=== PATIENT | male | born 1935 | race Caucasian/White ===

== ENCOUNTER 2020-09-27 18:46 | Inpatient (IN) | payer OTHER ==
[2020-09-27 19:06] VITALS: BMI 16.9
[2020-09-27] MEDS ORDERED: ONDANSETRON 4 MG/2 ML VIAL IV PRN (19:21)
[2020-09-27] MEDS ORDERED: MORPHINE 2 MG/ML SYR IV PRN (19:21)
[2020-09-27] MEDS ORDERED: CEFTRIAXONE 1 GM/NS 50 ML 1 GM/50 ML BAG IV SCH (19:45)
[2020-09-27] MEDS: NA CHLORIDE 0.9% 1,000 ML IV SCH (19:55)
[2020-09-27 20:00] LABS: Albumin 2.7 g/dL (3.4-5.0); Bilirubin Total 0.5 mg/dL (0.2-1.0); Potassium 4.3 mmol/L (3.5-5.1); Protein, Total 6.1 g/dL (6.4-8.2)
--- NOTE | 2020-09-27 22:20 | P.HP ---
Certification for Inpatient Patient admitted to: Inpatient With expected LOS: >2 Midnights Patient will require the following post-hospital care: None Practitioner: I am a practitioner with admitting privileges, knowledge of patient current condition, hospital course, and medical plan of care. Services: Services provided to patient in accordance with Admission requirements found in Title 42 Section 412.3 of the Code of Federal Regulations <Jeremy Tariq - Last Filed: 09/27/20 22:16> Patient History Date of Service: 09/27/20 Primary Care Provider: none Reason for admission: Small-bowel obstruction History of Present Illness: 85-year-old male with history of coronary artery disease, hyperten mehdi, hyperlipidemia, COPD was evaluated at stand-alone emergency department for abdominal pain. Patient reports that he had been experiencing abdominal pain over the course of the last 1 day. Patient reports last bowel movement was yesterday and normal, has not passed gas at all today, no bowel movement 1 episode of vomiting. Patient was evaluated after free standing ER labs significant for white blood cell count 14.5 hemoglobin 16.5 record 49.2 sodium 144 potassium 5.7, potassium was recheck at the stat CMP upon arrival and is 4.3. CT demonstrates high-grade distal small-bowel obstruction with trace ascites no large, loculated or drainable collection. 5 cm area of masslike consolidation versus scarring within the lateral aspect of the left lower lobe, patient aware of this has had some bloody sputum, likely has lung cancer, is following pulmonology for this. Upon arrival to hospital room patient is awake, alert, oriented x3, not having any stomach pain at this time, abdomen non distended soft, nontender. Patient feeling well at this time. - Past Medical/Surgical History Has patient received pneumonia vaccine in the past: Yes Diabetic: No -: copd -: chf -: htn -: high cholesterol -: carataract -: CAD -: cataract sx -: heart stent Psychosocial/ Personal History: Patient lives at home with his son is retired - Family History Family History: Reviewed- Non-Contributory - Social History Smoking Status: Never smoker Alcohol use: Yes Place of Residence: Home <Jeremy Tariq - Last Filed: 09/27/20 22:16> Date of Service: 10/06/20 <Yahir Cunningham - Last Filed: 10/06/20 20:39> Allergies No Known Allergies Allergy (Verified 09/27/20 19:06) Review of Systems 10-point ROS is otherwise unremarkable Gastrointestinal: Nausea, Vomiting, Abdominal Pain, No Distention <Jeremy Tariq - Last Filed: 09/27/20 22:16> Physical Examination - Vital Signs Temperature: 97.6 F Blood Pressure: 143/73 Pulse: 59 Respirations: 18 Pulse Ox (%): 95 - Physical Exam General: Alert, In no apparent distress HEENT: Atraumatic, PERRLA, Mucous membr. moist/pink Neck: Supple, 2+ carotid pulse no bruit, No LAD Respiratory: Clear to auscultation bilaterally, Normal air movement Cardiovascular: Regular rate/rhythm, Normal S1 S2 Gastrointestinal: Hypoactive, No ascites, No tenderness, No masses, No rebound, No guarding Musculoskeletal: No contractures, No erythema, No tenderness Integumentary: No rashes Neurological: Normal speech, Normal strength at 5/5 x4 extr, Normal tone - Studies Laboratory Data (last 24 hrs) 09/27/20 19:35: Sodium 138, Potassium 4.3, BUN 25 H, Creatinine 0.91, Glucose 110 H, Total Bilirubin 0.5, AST 29, ALT 47, Alkaline Phosphatase 82 <Jeremy Tariq - Last Filed: 09/27/20 22:16> Assessment and Plan - Plan Assessment High-grade distal small-bowel obstruction 5 cm mass lateral aspect left lower lobe Hypertension Hyperlipidemia COPD CHF? Plan High-grade distal small-bowel obstruction: NPO, encourage ambulation, general surgery consult in place. NG tube for worsening pain, vomiting, distension. SCDs for DVT prophylaxis, abdomen flat and erect x-ray in the morning. 5 cm mass lateral aspect left lower lobe: Patient aware, following pulmonology on outpatient basis. Appears stable. Hypertension: Will need to give medications IV p.r.n. due to NPO status at this time. Hyperlipidemia: Hold home medications at this time. COPD: Stable, provide p.r.n. medications. CHF?: Reported history of CHF, no echocardiogram available for review, appears stable this time. Patient appears dry, will continue with IV fluids at this time. Will need to watch volume status closely. Discharge Plan: Home Plan to discharge in: Greater than 2 days - Advance Directives Does patient have a Living Will: Yes Does patient have a Durable POA for Healthcare: Yes - Code Status/Comfort Care Code Status Assessed: Yes (Full code) Critical Care: No Time Spent Managing Pts Care (In Minutes): 55 <Jeremy Tariq - Last Filed: 09/27/20 22:16> - Plan Plan of care reviewed as noted above by Jeremy Tariq, and I agree with the management plan as noted above. Low threshold for NG tube placement. General surgery consulted <Yahir Cunningham - Last Filed: 10/06/20 20:39>
[2020-09-28 01:26] LABS: Urine Appearance CLEAR; Urine Bilirubin NEGATIVE (NEG); Urine Blood NEGATIVE (NEG); Urine Color DK YELLOW; Urine Glucose NEGATIVE (NEG); Urine Protein 1+ (NEG); Urine Specific Gravity >=1.030 (1.005-1.030); Urine pH 6.5 (5.0-7.0)
[2020-09-28 01:36] LABS: Urine Microscopic Reflex ORDER UMIC
[2020-09-28 02:18] LABS: Urine Bacteria 20-50 /HPF (NONE SEEN); Urine RBC <5 /HPF (NONE SEEN)
[2020-09-28] MEDS: NA CHLORIDE 0.9% 1,000 ML IV SCH ×3 (05:22→21:27)
[2020-09-28] MEDS: METRONIDAZOLE 500mg IVPB 500 MG/100 ML BAG IV SCH ×3 (05:34→21:28)
[2020-09-28 05:58] LABS: Absolute Lymphocytes (CBC) 1.7 K/uL (0.7-4.9); Basophils % 0.3 % (0-1.3); Hematocrit 47.4 % (39.6-49.0); Lymphocytes % 16.5 % (15.3-44.8); RBC Red Blood Cell Count 4.84 M/uL (4.33-5.43)
[2020-09-28 06:29] LABS: Albumin 2.7 g/dL (3.4-5.0); Bilirubin Total 0.6 mg/dL (0.2-1.0); Magnesium 2.3 mg/dL (1.8-2.4); Potassium 4.2 mmol/L (3.5-5.1); Protein, Total 6.4 g/dL (6.4-8.2)
[2020-09-28 06:38] LABS: Thyroid Stimulating Hormone 3.82 uIU/mL (0.360-3.740)
[2020-09-28] MEDS: CEFTRIAXONE/SWI 1gm 1 GM/10 ML SYR IV SCH (08:30)
--- NOTE | 2020-09-28 11:36 | RAD REPORT ---
EXAM DESCRIPTION: RAD - Abdomen W Erect - 09/28/2020 9:10 am CLINICAL HISTORY: eval sbo Pain COMPARISON: Thorax Wo Con dated 09/12/2020 FINDINGS: Moderate distention of bowel gas is seen in the abdomen. In particular, the colon appears particularly distended. Small bowel loops do not appear grossly distended. No pneumatosis or pneumope ritoneum. IMPRESSION: Bowel gas pattern demonstrates predominant distention of the colon relative to small-bow el.
--- NOTE | 2020-09-28 12:41 | CON ---
History Of Present Illness: This is the case of an 85-year-old patient, who comes to us, admitted fr [facility] which is an ER nearby with small bowel obstruction. He says he was eating a lot of corn and then after that developed this abdominal pain. He went out to the ER and he was transferre d to this institution. Unfortunately, we do not have the x-rays on him at this moment, so the result of the x-ray shows high-grade obstruction. He feels better today. He has no nausea, no vomiting. T he abdomen looks better and he has a bowel movement today. He does not remember having this before. He does remember his last colonoscopy. Denies any dysuria, hematuria, hematochezia, melena. Review of Systems: Ten points otherwise unremarkable. Allergies: NONE. Past Medical History: COPD, congestive heart failure, hypertension, coronary artery disease. Past Surgical History: Includes cataract surgery, patient has heart stent in the past. Social History: He does not smoke. He does not drink alcohol. Family History: Noncontributory. Physical Examination: General: The patient is awake, alert. HEENT: Pupils are equal and reactive. Anicteric. Neck: Supple. Chest: Clear. Abdomen: Soft and depressible. No guarding. No rebound. No peritoneal signs. Extremities: Good capillary refill. Laboratory Data: Blood work shows WBC count of 10.0 with potassium 4.2, BUN is 23. CAT scan of the abdomen and pelvis, we do not have the result at this moment that we can see the films. We are going to request that CT scan to be placed for us to be able to see the images itself. We saw the x-ray t azul and we still have some findings consistent with small bowel obstruction. The official result is still pending. Plan: Ambulation. He does not want the NG tube and is okay, but I believe he should not be in a t yet. If he will be started on a diet, then he may go into the risks of aspiration since the bowel obstruction is not completely resolved. We feel happy about his bowel movement, but it does not mean that the obstruction is resolved. We explained to him for the last 40 minutes pros and cons and why we are doing at this moment. He did agree. Continue with hydration. If this patient requires surg brandon, most likely he will require anesthesia so a Cardiology clearance will be nice to have in his [place] rt. NEGAR/DENA Voice ID: [id number] Report ID: [id number]
--- NOTE | 2020-09-28 13:26 | P.PN ---
Subjective Date of Service: 09/28/20 Primary Care Provider: none Chief Complaint: Small-bowel obstruction Subjective: Other (feeling better today, no nausea/vomiting, had "good BM" overnight) Review of Systems 10-point ROS is otherwise unremarkable Physical Examination - Vital Signs Temperature: 98.2 F Blood Pressure: 141/66 Pulse: 62 Respirations: 16 Pulse Ox (%): 95 - Studies Laboratory Data (last 24 hrs) 09/28/20 05:09: Sodium 137, Potassium 4.2, BUN 23 H, Creatinine 0.97, Glucose 72 L, Magnesium 2.3, Total Bilirubin 0.6, AST 35, ALT 47, Alkaline Phosphatase 88 09/28/20 05:09: WBC 10.40, Hgb 15.3, Hct 47.4, Plt Count 209 09/27/20 19:35: Sodium 138, Potassium 4.3, BUN 25 H, Creatinine 0.91, Glucose 110 H, Total Bilirubin 0.5, AST 29, ALT 47, Alkaline Phosphatase 82 Assessment & Plan Physician Review Additional Text: Physical exam Gen: NAD HEENT: Normal conjunctiva, sclerae anicteric CV: Regular rate and rhythm Pulm: CTAB, no w/r/r Abd: soft, NTND Ext: no edema, no rash Problem List High-grade distal small-bowel obstruction 5 cm mass lateral aspect left lower lobe Hypertension Hyperlipidemia COPD CHF unknown type High-grade distal small-bowel obstruction: BM overnight, feeling better General surgery consulted KUB ordered for further evaluation Continue NPO for now, await surgery evaluation/recommendations 5 cm mass lateral aspect left lower lobe: Patient aware, following pulmonology on outpatient basis. Appears stable. Hypertension: Will need to give medications IV p.r.n. due to NPO status at this time. Hyperlipidemia: Hold home medications at this time. COPD: Stable, provide p.r.n. medications. CHF: Reported history of CHF, no echo available for review, appears stable at this time. Will need to watch volume status closely. decrease IVF Dispo: pending surgery eval, x-ray, resolution of SBO and tolerating diet Time Spent Managing Pts Care (In Minutes): 35
[2020-09-28] MEDS ORDERED: METRONIDAZOLE 500mg IVPB 500 MG/100 ML BAG IV SCH (20:00)
[2020-09-29] MEDS: METRONIDAZOLE 500mg IVPB 500 MG/100 ML BAG IV SCH ×3 (05:27→22:26)
[2020-09-29 05:48] LABS: Basophils % 0.4 % (0-1.3); Hematocrit 39.5 % (39.6-49.0); Lymphocytes % 12.2 % (15.3-44.8); MPV 10.1 fL (7.6-11.3); RBC Red Blood Cell Count 4.08 M/uL (4.33-5.43)
[2020-09-29 06:09] LABS: ALT/SGPT 34 U/L (12-78); AST/SGOT 27 U/L (15-37); Albumin 2.2 g/dL (3.4-5.0); Alkaline Phosphatase 76 U/L (45-117); BUN Blood Urea Nitrogen 26 mg/dL (7-18); Bicarbonate 25 mmol/L (21-32); Bilirubin Total 0.7 mg/dL (0.2-1.0); Glucose Level 61 mg/dL (74-106); Magnesium 2.3 mg/dL (1.8-2.4); Potassium 4.3 mmol/L (3.5-5.1); Protein, Total 5.1 g/dL (6.4-8.2); Sodium Level 141 mmol/L (136-145)
--- NOTE | 2020-09-29 08:38 | RAD REPORT ---
EXAM DESCRIPTION: RAD - Abdomen Single View - 09/29/2020 5:56 am CLINICAL HISTORY: f/u SBO Pain COMPARISON: No comparisons FINDINGS: Contrast is noted in the descending and sigmoid colon. Diverticulosis of the sigmoid colon is evident. Nonspecific distention of large and small bowel loops are present, suggesting ileus. No pneumoperitoneum.
[2020-09-29] MEDS: NA CHLORIDE 0.9% 1,000 ML IV SCH (09:05)
[2020-09-29] MEDS: CEFTRIAXONE/SWI 1gm 1 GM/10 ML SYR IV SCH (09:05)
--- NOTE | 2020-09-29 10:58 | PN ---
Date of Progress Note: 09/29/2020 Diagnosis: Small bowel obstruction. Subjective: The patient looks better. No nausea, no vomiting, no abdominal pain today, passing flat us and had bowel movements x2. Objective: Chest: Clear. Abdomen: Soft and depressible. No guarding or rebound. Bowel sounds positive. Extremities: Good capillary refill. Laboratory Data: X-ray looks better. Plan: He wants to try clear liquid diet and see how he does. If he fails clear liquid diet, then we are going to get a small bowel series. Even if he is improving with his bowel obstruction and he go es home, he was advised to follow with the ruling machine set up operator to look for any other reasons of this b owel obstruction that has not been able to be seen at this moment including following up on his liver condition. We will give him clear liquid diet today. MARIA TERESA Voice ID: [id number] Report ID: [id number]
[2020-09-29] MEDS ORDERED: ALBUTEROL INHALER 60 PUFF/8 GM IH PRN (11:11)
--- NOTE | 2020-09-29 11:33 | CON ---
Date of Consultation: 09/29/[address] Cunningham's service on 09/27/2020 with small bowel obstruction. Reason For Consultation: Cardiac clearance for possible surgery by Dr. Jeovany jenkins. History Of Present History: Mr. Kirk is 85. Has a history of CHF; COPD; dyslipidemia; hypertensio n; coronary artery disease, status post PCI. Comes in with small bowel obstruction without any cardi ac symptoms. He denied PND, orthopnea, pedal edema, palpitations, or syncope. He denied any chest p ain. Allergies: NONE. Review of Systems: Negative. Social History: Negative. Family History: Negative. Medications: Include Brilinta, metoprolol, Coreg, Lasix, Ranexa, Lipitor, inhalers. Physical Examination: General: Pleasant, no acute distress. Vital Signs: Stable, afebrile. HEENT: Negative. Neck: Supple with no bruit. Chest: Clear. Cardiac: Revealed a regular rhythm and rate with aortic sclerosis murmur. No gallops or rubs. Abdomen: Benign. At this time, he does have good bowel sounds. Extremities: Reveal no clubbing, cyanosis or edema. His EKG was nonspecific. Chest x-ray was normal. Laboratory evaluation was unremarkable. Impression And Plan: This is the patient who is 85, has a history of chronic diastolic congestive he art failure; chronic obstructive pulmonary disease; hypertension; dyslipidemia; coronary artery disea se, status post percutaneous coronary intervention. He is on Brilinta, Coreg, Lasix, metoprolol, Ran exa, Lipitor, and inhalers. Has seen Dr. Anderson in the office recently and no cardiac workup was don e because of lack of symptoms. His EKG was unremarkable. His troponin is negative. I think, Mr. Miguelangel hsu is at low risk for perioperative mortality if the surgery is required. I will be available for questions if the need arises. We will see him in the office in 2 weeks. KAELYN/DENA Voice ID: [id number] Report ID: [id number]
--- NOTE | 2020-09-29 13:04 | P.PN ---
Subjective Date of Service: 09/29/20 Primary Care Provider: none Chief Complaint: Small-bowel obstruction Subjective: Improving (small BM overnight, passing slight flatus, no nausea/vomiting, no abdominal pain) Review of Systems 10-point ROS is otherwise unremarkable Physical Examination - Vital Signs Temperature: 98.0 F Blood Pressure: 161/74 Pulse: 59 Respirations: 14 Pulse Ox (%): 95 - Studies Laboratory Data (last 24 hrs) 09/29/20 05:35: Sodium 141, Potassium 4.3, BUN 26 H, Creatinine 0.76, Glucose 61 L, Magnesium 2.3, Total Bilirubin 0.7, AST 27, ALT 34, Alkaline Phosphatase 76 09/29/20 05:35: WBC 8.40 D, Hgb 13.1 L, Hct 39.5 L D, Plt Count 158 D Assessment & Plan Physician Review Additional Text: Physical exam Gen: NAD, thin HEENT: Normal conjunctiva, sclerae anicteric CV: Regular rate and rhythm Pulm: CTAB, no w/r/r Abd: soft, NTND, small umbilical and L inguinial hernias Ext: no edema, no rash Problem List High-grade distal small-bowel obstruction 5 cm mass lateral aspect left lower lobe Hypertension Hyperlipidemia COPD CHF unknown type High-grade distal small-bowel obstruction: BM overnight the last 2 nights, feeling better, no longer having abdominal pain KUB repeated today, notable for ?ileus. General surgery consulted - recommend CLD today, if does well, possibly advance tomorrow. if nausea/vomiting, will need NGT / likely surgery 5 cm mass lateral aspect left lower lobe: Patient aware, following pulmonology on outpatient basis. Appears stable. Hypertension: Will need to give medications IV p.r.n. due to NPO status at this time. Hyperlipidemia: can restart home medications COPD: Stable, provide p.r.n. medications. CHF: Reported history of CHF, no echo available for review, appears stable at this time. Will need to watch volume status closely. IVF dc'd now that he is on CLD CAD s/p stent: held home brilinta due to possible surgery Dispo: possible dc tomorrow if continues to improve Time Spent Managing Pts Care (In Minutes): 35
[2020-09-29] MEDS: carvediloL 6.25 MG TAB PO SCH ×2 (16:11→20:40)
[2020-09-29] MEDS: ENSURE CLEAR 200 ML CAN PO SCH (20:43)
[2020-09-29] MEDS ORDERED: ATORVASTATIN 40 MG TAB PO SCH (21:00)
[2020-09-30] MEDS: METRONIDAZOLE 500mg IVPB 500 MG/100 ML BAG IV SCH ×2 (05:44→13:35)
[2020-09-30 05:45] LABS: Absolute Lymphocytes (CBC) 1.1 K/uL (0.7-4.9); Basophils % 0.3 % (0-1.3); Hematocrit 38.1 % (39.6-49.0); Lymphocytes % 17.1 % (15.3-44.8); MPV 9.6 fL (7.6-11.3); RBC Red Blood Cell Count 3.99 M/uL (4.33-5.43)
[2020-09-30 06:03] LABS: ALT/SGPT 32 U/L (12-78); AST/SGOT 34 U/L (15-37); Albumin 2.2 g/dL (3.4-5.0); Alkaline Phosphatase 73 U/L (45-117); BUN Blood Urea Nitrogen 14 mg/dL (7-18); Bicarbonate 28 mmol/L (21-32); Bilirubin Total 0.6 mg/dL (0.2-1.0); Glucose Level 91 mg/dL (74-106); Protein, Total 5.1 g/dL (6.4-8.2); Sodium Level 142 mmol/L (136-145)
[2020-09-30] MEDS: carvediloL 6.25 MG TAB PO SCH (08:30)
[2020-09-30] MEDS: ENSURE CLEAR 200 ML CAN PO SCH ×2 (08:31→13:35)
[2020-09-30] MEDS: CEFTRIAXONE/SWI 1gm 1 GM/10 ML SYR IV SCH (08:31)
[2020-09-30] MEDS ORDERED: Budesonide/Formoterol Fumarate [Symbicort 160-4.5 Mcg Inhaler] 10.2 GM IH SCH (09:00)
[2020-09-30] MEDS ORDERED: TIOTROPIUM IH SCH (09:00)
[2020-09-30 09:08] VITALS: O2SAT 93
[2020-09-30 10:07] VITALS: TEMP 98.3
[2020-09-30 14:35] VITALS: BP 126/65
--- NOTE | 2020-09-30 15:01 | P.DS ---
Admission Date: 09/27/20 Discharge Date: 09/30/20 Primary Care Provider: none Disposition: ROUTINE DISCHARGE Discharge Condition: FAIR Reason for Admission: Small-bowel obstruction Consultations: General Surgery - Problems (1) Small bowel obstruction Current Visit: Yes Status: Acute (2) Lung mass Current Visit: Yes Status: Acute (3) Chronic diastolic heart failure Current Visit: Yes Status: Acute (4) Hypertension Current Visit: Yes Status: Acute (5) COPD (chronic obstructive pulmonary disease) Current Visit: Yes Status: Acute Brief History of Present Illness: 85-year-old man with a history of COPD, chronic diastolic heart failure, hypertension, lung mass which is being followed by [facility] presented to the emergency department with a complaint of abdominal pain of [address] abdomen and pelvis done in the emergency department suggested high-grade small-bowel obstruction. Patient was admitted for further management. Hospital Course: Patient admitted to medical floor and treated supportively for the small bowel obstruction. He was seen in consultation by general surgery Dr. Thayer recommended nonsurgical management for now. He was hydrated with IV fluid and treated with IV antibiotics. Patient bowel obstruction improved and resolved. He was started on liquid diet which he tolerated. Diet advanced to soft diet which patient also tolerated with no abdominal pain. He has no abdominal distension. His other medical problems including CHF and COPD were stable during the hospital stay. Patient has bowel obstruction has resolved. Vital signs stable. He is discharged to follow with Dr. Thayer within 1 week. Vital Signs/Physical Exam: Temp Pulse Resp BP Pulse Ox 98.3 F 56 20 126/65 98 09/30/20 12:00 09/30/20 12:00 09/30/20 12:00 09/30/20 12:09/30/20 12:00 General: Alert, In no apparent distress, Oriented x3 HEENT: Mucous membr. moist/pink Neck: Supple, JVD not distended Respiratory: Clear to auscultation bilaterally, Normal air movement Cardiovascular: No edema, Regular rate/rhythm, Normal S1 S2 Gastrointestinal: Normal bowel sounds, Soft and benign, Non-distended, No tenderness Musculoskeletal: No swelling, No tenderness Integumentary: No rashes, No erythema Neurological: Other (No focal motor deficit.) Laboratory Data at Discharge: WBC 6.60 K/uL (4.3-10.9) D 09/30/20 05:10 Hgb 12.8 g/dL (13.6-17.9) L 09/30/20 05:10 Hct 38.1 % (39.6-49.0) L 09/30/20 05:10 Plt Count 148 K/uL (152-406) L 09/30/20 05:10 Sodium 142 mmol/L (136-145) 09/30/20 05:10 Potassium 4.0 mmol/L (3.5-5.1) 09/30/20 05:10 BUN 14 mg/dL (7-18) 09/30/20 05:10 Creatinine 0.75 mg/dL (0.55-1.3) 09/30/20 05:10 Glucose 91 mg/dL (74-106) 09/30/20 05:10 Magnesium 2.0 mg/dL (1.8-2.4) 09/30/20 05:10 Total Bilirubin 0.6 mg/dL (0.2-1.0) 09/30/20 05:10 AST 34 U/L (15-37) 09/30/20 05:10 ALT 32 U/L (12-78) 09/30/20 05:10 Alkaline Phosphatase 73 U/L (45-117) 09/30/20 05:10 Home Medications: Albuterol Sulfate [Proair Digihaler] 90 mcg IH PRN PRN 09/28/20 Atorvastatin Calcium [Lipitor] 40 mg PO BEDTIME 09/28/20 Budesonide/Formoterol Fumarate [Symbicort 160-4.5 Mcg Inhaler] 2 puff IH DAILY 09/28/20 Cholecalciferol (Vitamin D3) [Vitamin D3] 25 mcg PO DAILY 09/28/20 Magnesium Oxide [Magnesium] 250 mg PO DAILY 09/28/20 Ranolazine [Ranolazine ER] 500 mg PO DAILY 09/28/20 Ticagrelor [Brilinta*] 90 mg PO BID 09/28/20 Tiotropium [Spiriva Handihaler*] 18 mcg IH DAILY 09/28/20 Torsemide 10 mg PO DAILY 09/28/20 carvediloL [Coreg*] 6.25 mg PO BID 09/28/20 Ensure Clear 237 ml PO TID #90 can 09/30/20 New Medications: Ensure Clear 237 ml PO TID #90 can Diet: AHA Activity: Ad marii Time spent managing pt's care (in minutes): 36
[2020-10-01 11:35] LABS: C.diff Antigen/Toxin Ag neg : Tox neg (NEG : NEG)
== END 2020-09-30 16:45 | disposition home or self-care (01) | DRG 389 ==
LOC: 2ND 18:46 → OBSVTOIN 19:21
PROVIDERS: ADMIT Hospitalist; ATTEND Internal Medicine
DX: K56.609 Unspecified intestinal obstruction, unspecified as to partial versus complete obstruction (principal); I50.32 Chronic diastolic (congestive) heart failure; E44.1 Mild protein-calorie malnutrition; Z68.1 Body mass index [BMI] 19.9 or less, adult; I11.0 Hypertensive heart disease with heart failure; I25.10 Atherosclerotic heart disease of native coronary artery without angina pectoris; E78.5 Hyperlipidemia, unspecified; J44.9 Chronic obstructive pulmonary disease, unspecified; R91.8 Other nonspecific abnormal finding of lung field; Z95.5 Presence of coronary angioplasty implant and graft
CPT/HCPCS: 36415; 74018; 74019; 80053; 81003; 81015; 83735; 84439; 84443; 85025; 87086; 87088; 87324; 87449; G0379; J0696; J7030